=== PATIENT | male | born 1965 | race Native Hawaiian/Other Pacific Islander ===

== ENCOUNTER 2023-07-11 17:35 | Emergency (ER) | payer OTHER ==
[~2023-07-11] VITALS: Ht 175.3 cm; Wt 77.1 kg
[2023-07-11 17:37] VITALS: TEMP 98.1
[2023-07-11 17:59] LABS: PLATELET COUNT 312 K/uL (142-355)
[2023-07-11 19:45] VITALS: BP 122/80
== END 2023-07-11 20:00 | disposition home or self-care (01) ==
LOC: ED 17:35
PROVIDERS: Family Medicine
DX: M25.511 Pain in right shoulder (principal); M54.10 Radiculopathy, site unspecified; I13.0 Hypertensive heart and chronic kidney disease with heart failure and stage 1 through stage 4 chronic kidney disease, or unspecified chronic kidney disease; I50.9 Heart failure, unspecified; N18.9 Chronic kidney disease, unspecified; F15.10 Other stimulant abuse, uncomplicated
CPT/HCPCS: 80053; 80307; 81002; 83880; 84484; 85027; 93005; 96360; 96374; 99284; J1940